=== PATIENT | female | born 2000 | race Caucasian/White ===

== ENCOUNTER 2018-12-10 21:51 | Emergency (ER) | payer OTHER ==
[2018-12-11] MEDS: ACETAMINOPHEN 500 MG TAB PO (00:20)
[2018-12-11] MEDS: DIPHENHYDRAMINE 50 MG INJ IV (00:20)
[2018-12-11] MEDS: METOCLOPRAMIDE 10 MG INJ IV (00:20)
[2018-12-11] MEDS: SOD CHLORIDE 0.9% 1,000 ML IV (00:21)
== END 2018-12-11 02:28 | disposition home or self-care (01) ==
LOC: FTE 21:51
DX: G43.919 Migraine, unspecified, intractable, without status migrainosus (principal)
CPT/HCPCS: 70450; 80053; 81003; 81025; 85025; 85610; 85730; 96374; 96375; 99285-25